=== PATIENT | female | born 2000 ===

== ENCOUNTER 2021-12-13 04:23 | Emergency (ER) | payer OTHER ==
[~2021-12-13] VITALS: Ht 152.4 cm; Wt 70.3 kg
== END 2021-12-13 10:31 | disposition home or self-care (01) ==
LOC: ER 04:23
DX: R10.11 Right upper quadrant pain (principal); K80.20 Calculus of gallbladder without cholecystitis without obstruction; R11.10 Vomiting, unspecified

== ENCOUNTER 2021-12-27 05:18 | Day surgery (SDC) | payer OTHER ==
[~2021-12-27] VITALS: Ht 154.9 cm; Wt 70.3 kg
== END 2021-12-27 12:00 | disposition home or self-care (01) ==
LOC: CIR.AMB 05:18
PROVIDERS: ATTEND Specialist
DX: K81.1 Chronic cholecystitis (principal); J45.909 Unspecified asthma, uncomplicated; E66.9 Obesity, unspecified

== ENCOUNTER 2023-12-11 13:15 | Outpatient (CLI) | payer OTHER | END 2023-12-11 13:16 | disposition home or self-care (01) | LOC: PRENATAL 13:15 | PROVIDERS: ATTEND Obstetrics & Gynecology Maternal & Fetal Medicine | DX: O36.80X0 Pregnancy with inconclusive fetal viability, not applicable or unspecified (principal); Z36.82 Encounter for antenatal screening for nuchal translucency; Z3A.12 12 weeks gestation of pregnancy ==

== ENCOUNTER 2024-02-04 15:03 | Outpatient (CLI) | payer OTHER | END 2024-02-04 15:04 | disposition home or self-care (01) | LOC: PRENATAL 15:03 | PROVIDERS: ATTEND Obstetrics & Gynecology Maternal & Fetal Medicine | DX: O35.9XX0 Maternal care for (suspected) fetal abnormality and damage, unspecified, not applicable or unspecified (principal); O35.3XX0 Maternal care for (suspected) damage to fetus from viral disease in mother, not applicable or unspecified; Z14.8 Genetic carrier of other disease; O44.02 Complete placenta previa NOS or without hemorrhage, second trimester; Z3A.20 20 weeks gestation of pregnancy ==

== ENCOUNTER 2024-04-07 10:50 | Outpatient (CLI) | payer OTHER | END 2024-04-07 10:51 | disposition home or self-care (01) | LOC: PRENATAL 10:50 | PROVIDERS: ATTEND Obstetrics & Gynecology Maternal & Fetal Medicine | DX: O26.849 Uterine size-date discrepancy, unspecified trimester (principal); O44.00 Complete placenta previa NOS or without hemorrhage, unspecified trimester; Z3A.29 29 weeks gestation of pregnancy ==

== ENCOUNTER → 2024-05-12 10:00 | Outpatient (CLI) | payer OTHER | END | disposition home or self-care (01) | LOC: PRENATAL 10:00 | PROVIDERS: ATTEND Obstetrics & Gynecology Maternal & Fetal Medicine | DX: O26.849 Uterine size-date discrepancy, unspecified trimester (principal); O36.8199 Decreased fetal movements, unspecified trimester, other fetus; Z3A.34 34 weeks gestation of pregnancy ==

== ENCOUNTER 2024-06-11 12:30 | Inpatient (IN) | payer OTHER ==
[~2024-06-11] VITALS: Ht 154.9 cm; Wt 86.2 kg
[2024-06-18] VITALS (7 sets, daily range): BP systolic 86–152; BP diastolic 56–87
[2024-06-18] MEDS ORDERED: RINGERS SOLUTION,LACTATED 1,000 ML IV SCH (09:30)
[2024-06-18] MEDS ORDERED: PRENATAL CAPLE1 EAC1 PO (09:42)
[2024-06-18] MEDS ORDERED: OXYTOCIN 20 UNITS/500ML RL PIGGYBAG IV ONE (16:14)
[2024-06-18] MEDS ORDERED: OXYTOCIN 500 ML IV SCH (16:30)
[2024-06-18] MEDS ORDERED: LIDOCAINE HCL 1% 10ML VIAL ONE (17:13)
[2024-06-18] MEDS ORDERED: ERYTHROMYCIN BASE OPHT 1GM EACH TUBE OP ONE (17:13)
[2024-06-18] MEDS ORDERED: CHLORHEXIDINE GLUCONATE 120 ML BOTTLE TOP ONE (17:13)
[2024-06-18] MEDS ORDERED: OXYTOCIN 20 UNITS/1000ML RL PIGGYBAG IV ONE (17:13)
[2024-06-18] MEDS ORDERED: ACETAMINOPHEN 500 MG GEL..CAP PO PRN (20:15)
[2024-06-18] MEDS ORDERED: CHLORHEXIDINE GLUCONATE 120 ML BOTTLE TOP SCH (20:30)
[2024-06-18] MEDS ORDERED: OXYTOCIN 1,000 ML IV SCH (20:30)
[2024-06-19 01:20] VITALS: BP 110/73; O2SAT 100
[2024-06-19 08:43] VITALS: BP 106/61
[2024-06-19] MEDS ORDERED: PNV,CALCIUM 72/IRON/FOLIC ACID 1 TAB TABLET PO SCH (09:00)
[2024-06-19 09:36] LABS: HEMATOCRIT 28.8 % (36.0-45.00); MEAN CELL VOLUME 77.7 fL (80.00-100.00); MEAN CORPUSCULAR HGB CONC 33.3 g/dl (32.0-36.0); RED BLOOD COUNT 3.71 M/uL (4.00-6.00)
[2024-06-19 10:11] LABS: HEMOGLOBIN 9.6 g/dL (12.0-15.00); MEAN CORPUSCULAR HEMOGLOBIN 25.8 pg (27.00-32.0); PLATELET COUNT 125 K/uL (150-450)
[2024-06-19 11:25] LABS: RED CELL DISTRIBUTION WIDTH 17.1 % (11.5-14.5)
[2024-06-19 17:57] VITALS: BP 122/77
[2024-06-20 00:17] VITALS: BP 111/64
[2024-06-20 08:00] VITALS: BP 108/70
== END 2024-06-20 13:56 | disposition home or self-care (01) | DRG 807 ==
LOC: LDR 06-18 08:52 → OB/GYN 06-18 08:52 → LDR 06-18 10:29 → OB/GYN 06-18 21:01
PROVIDERS: ADMIT Student in an Organized Health Care Education/Training Program; ATTEND Student in an Organized Health Care Education/Training Program
PROC: 10E0XZZ Delivery of Products of Conception, External Approach (ICD-10-PCS; principal; 2024-06-18)
PROC: 0UQG7ZZ Repair Vagina, Via Natural or Artificial Opening (ICD-10-PCS; 2024-06-18)
PROC: 4A1HXCZ Monitoring of Products of Conception, Cardiac Rate, External Approach (ICD-10-PCS; 2024-06-18)
DX: O71.4 Obstetric high vaginal laceration alone (principal); Z37.0 Single live birth; Z3A.39 39 weeks gestation of pregnancy; Z20.822 Contact with and (suspected) exposure to COVID-19